=== PATIENT | male | born 1955 | race Caucasian/White ===

== ENCOUNTER 2025-01-21 13:07 | Inpatient (IN) | payer OTHER ==
[2025-01-21 13:18] VITALS: BMI 29.4
[2025-01-21] MEDS: ALBUTEROL SO4 2.5/IPRATROPIUM 0.5 INH SOL 3 ML VIAL.NEB. NEB SCH ×2 (13:36→23:06)
[2025-01-21] MEDS ORDERED: ALBUTEROL SO4 2.5/IPRATROPIUM 0.5 INH SOL 3 ML VIAL.NEB. NEB ONE ×2 (13:43→14:46)
[2025-01-21] MEDS ORDERED: AZITHROMYCIN IVPB 500 MG/250 ML BAG IVPB ONE (14:13)
[2025-01-21 14:21] LABS: ABSOLUTE IMMATURE GRANULOCYTES 0.06 x10^3/uL (0.0-0.031); BASOPHILS # 0.03 x10^3/uL (0.01-0.08); HEMOGLOBIN 12.8 g/dL (13.7-17.5); MEAN CELL VOLUME 87.3 fl (79.0-92.2); MEAN PLT VOLUME 9.4 fl (9.4-12.4); MONOCYTE # 0.55 x10^3/uL (0.30-0.82); MONOCYTE % 3.8 % (5.3-12.2); PLATELET COUNT 286 x10^3/uL (163-337); VENOUS BASE EXCESS 2.1 mmol/L (-2-2); VENOUS O2 SATURATION 70.7 % (70-80); VENOUS PCO2 47.1 mmHg (38-52); VENOUS PH 7.388 (7.310-7.410)
[2025-01-21] MEDS: AZITHROMYCIN IVPB 500 MG in DEXTROSE 5%-WATER - 250 ML IVPB ONE (14:22)
[2025-01-21 14:29] LABS: INR 1.12 (0.83-1.09); PROTHROMBIN TIME (PATIENT) 12.2 SEC (9.7-13.0)
[2025-01-21 14:31] LABS: ACTIVATED PTT 28.8 SECONDS (25.2-36.5)
[2025-01-21 14:48] LABS: POTASSIUM 3.5 mmol/L (3.5-5.1)
[2025-01-21 14:50] LABS: ALBUMIN 3.8 g/dl (3.4-5.0); BLOOD UREA NITROGEN 12.4 mg/dL (7-18); CALCIUM 9.4 mg/dL (8.5-10.1)
[2025-01-21 14:53] LABS: CREATININE 0.9 mg/dL (0.55-1.3)
[2025-01-21 14:56] LABS: BILIRUBIN,TOTAL 0.5 mg/dL (0.2-1)
[2025-01-21 14:57] LABS: TOT PROT 7.5 g/dl (6.4-8.2)
[2025-01-21 15:47] LABS: HIV INTERPRETATION NEGATIVE (NEGATIVE)
[2025-01-21 15:48] LABS: HCV DIAGNOSTIC IN-HOUSE W/RFLX NON-REACTIVE (NONREACTIVE)
[2025-01-21] MEDS ORDERED: ACETAMINOPHEN 325 MG TABLET (FP) PO PRN (16:50)
[2025-01-21] MEDS ORDERED: HYDROCORTISONE SOD SUCCINATE 100 MG/2 ML VIAL ONE (18:14)
[2025-01-21] MEDS: methylPREDNISolone NA SUCC 40 MG/1 ML VIAL IVPUSH SCH (18:18)
[2025-01-21] MEDS: guaiFENesin 200 MG/10 ML 10 ML UNIT-DOSE CUPS PO PRN (23:20)
[2025-01-22] MEDS: ENOXAPARIN NA (PORCINE) 40 MG/0.4 ML DISP.SYRIN SQ SCH (09:20)
[2025-01-22] MEDS: PANTOPRAZOLE 20 MG TABLET PO SCH (09:20)
[2025-01-22] MEDS: AZITHROMYCIN IVPB 250 MG in DEXTROSE 5%-WATER - 250 ML IVPB SCH (09:20)
[2025-01-22] MEDS: methylPREDNISolone NA SUCC 40 MG/1 ML VIAL IVPUSH SCH (17:08)
[2025-01-23 15:02] VITALS: RESP 18
[2025-01-23] MEDS ORDERED: guaiFENesin 200 MG/10 ML 10 ML UNIT-DOSE CUPS PO PRN (16:57)
[2025-01-23] MEDS ORDERED: ACETAMINOPHEN 325 MG TABLET (FP) PO PRN (16:57)
[2025-01-23] MEDS: ALBUTEROL SO4 2.5/IPRATROPIUM 0.5 INH SOL 3 ML VIAL.NEB. NEB SCH (19:43)
[2025-01-23] MEDS: methylPREDNISolone NA SUCC 40 MG/1 ML VIAL IVPUSH SCH (21:05)
[2025-01-24 08:21] LABS: BASOPHILS # 0.02 x10^3/uL (0.01-0.08); HEMATOCRIT 37.7 % (40.1-51.0); HEMOGLOBIN 11.8 g/dL (13.7-17.5); MCHC 31.3 g/dl (32.3-36.5); MEAN CELL VOLUME 88.7 fl (79.0-92.2); MEAN PLT VOLUME 9.5 fl (9.4-12.4); MONOCYTE # 0.94 x10^3/uL (0.30-0.82); MONOCYTE % 5.5 % (5.3-12.2); PLATELET COUNT 300 x10^3/uL (163-337); RDW 14.1 % (12.2-16.4)
[2025-01-24 08:33] LABS: CALCIUM 8.9 mg/dL (8.5-10.1)
[2025-01-24 08:37] LABS: CREATININE 0.8 mg/dL (0.55-1.3)
[2025-01-24 08:38] LABS: BILIRUBIN,TOTAL 0.2 mg/dL (0.2-1); TOT PROT 5.9 g/dl (6.4-8.2)
[2025-01-24 08:41] LABS: ALBUMIN 2.9 g/dl (3.4-5.0)
[2025-01-24] MEDS: PANTOPRAZOLE 20 MG TABLET PO SCH (09:43)
[2025-01-24] MEDS: AZITHROMYCIN IVPB 250 MG in DEXTROSE 5%-WATER - 250 ML IVPB SCH (09:43)
[2025-01-24] MEDS: ENOXAPARIN NA (PORCINE) 40 MG/0.4 ML DISP.SYRIN SQ SCH (09:43)
[2025-01-24 10:49] VITALS: BP 119/63; PULSE 83; TEMP 97.3
== END 2025-01-24 12:03 | disposition home or self-care (01) | DRG 192 ==
LOC: JER 13:07 → J4S 16:51 → JER 19:53 → J7W 01-23 14:52
PROVIDERS: ADMIT Internal Medicine; ATTEND Internal Medicine
DX: J44.1 Chronic obstructive pulmonary disease with (acute) exacerbation (principal); F17.210 Nicotine dependence, cigarettes, uncomplicated; F32.A Depression, unspecified; F41.9 Anxiety disorder, unspecified
CPT/HCPCS: 0241U-QW; 36415; 71046-TC-FY; 80053; 82803; 83735; 84484; 85025; 85610; 85730; 86803; 87389; 93005; 93010; 94640; 99285-25